=== PATIENT | male | born 1960 | race Caucasian/White ===

== ENCOUNTER 2021-10-12 16:47 | Inpatient (IN) ==
[2021-10-12] MEDS ORDERED: *HR* OxyCODONE Immed Rel 5 MG TABLET PO PRN (21:33)
[2021-10-12] MEDS ORDERED: *HR* LORazepam 0.5 MG TABLET PO PRN (21:33)
[2021-10-12] MEDS ORDERED: QUEtiapine Fumarate 25 MG TABLET PO SCH (21:45)
[2021-10-12] MEDS ORDERED: traZODone 50 MG TABLET PO SCH (21:45)
[2021-10-12] MEDS: Budesonide/Formoterol 160/4.5 1 PUFF INH IH SCH (22:01)
[2021-10-13] MEDS: Ipratropium/Albuterol Neb 3 ML IH SCH ×2 (05:15→10:34)
[2021-10-13] MEDS: Morphine Sulfate Oral CONC 10 MG/0.5 ML ORAL.SYG PO PRN ×2 (05:22→12:22)
[2021-10-13 07:13] VITALS: TEMP 98.2
[2021-10-13] MEDS: Budesonide/Formoterol 160/4.5 1 PUFF INH IH SCH (10:35)
[2021-10-13 10:47] VITALS: RESP 20; O2SAT 90
[2021-10-13 11:37] VITALS: BP 89/51; PULSE 84
== END 2021-10-13 15:59 | disposition hospice, home (50) | DRG 951 ==
LOC: INPGRE 20:06
PROVIDERS: ADMIT Family Medicine; ATTEND Family Medicine